=== PATIENT | female | born 1980 | race African-American/Black ===

== ENCOUNTER 2019-05-23 23:30 | Emergency (ER) | payer MEDICAID ==
[~2019-05-23] VITALS: Ht 172.7 cm; Wt 55.0 kg
[2019-05-24] MEDS ORDERED: KETOROLAC 60MG/2ML VIAL IM STA (02:00)
[2019-05-24 04:41] VITALS: BP 116/63
== END 2019-05-24 04:42 | disposition home or self-care (01) ==
LOC: ER 23:30
DX: S63.601A Unspecified sprain of right thumb, initial encounter (principal); Y04.0XXA Assault by unarmed brawl or fight, initial encounter; Y93.89 Activity, other specified; Y92.89 Other specified places as the place of occurrence of the external cause; Y99.8 Other external cause status
CPT/HCPCS: 29125; 73130; 96372; 99283; J1885